=== PATIENT | male | born 1965 | race African-American/Black ===

== ENCOUNTER 2019-04-18 07:58 | Emergency (ER) | payer OTHER ==
[~2019-04-18] VITALS: Ht 172.7 cm; Wt 87.7 kg
[2019-04-18] MEDS ORDERED: HYDROCODONE/ACETAMINOPHEN 5/325MG TABLET PO ONE (08:45)
[2019-04-18 09:10] LABS: COLOR URINE YELLOW (YELLOW); KETONES URINE NEGATIVE (NEGATIVE); LEUKOCYTE ESTERASE URINE NEGATIVE (NEGATIVE); NITRITE URINE NEGATIVE (NEGATIVE); OCCULT BLOOD URINE NEGATIVE (NEGATIVE); PROTEIN URINE NEGATIVE (NEGATIVE); SPECIFIC GRAVITY URINE 1.014 (1.005-1.030)
[2019-04-18 09:11] LABS: CLARITY URINE CLEAR (CLEAR)
[2019-04-18 10:30] VITALS: BP 110/75
== END 2019-04-18 11:05 | disposition home or self-care (01) ==
LOC: ER 07:58
DX: M62.830 Muscle spasm of back (principal); E78.5 Hyperlipidemia, unspecified; I10 Essential (primary) hypertension; I25.10 Atherosclerotic heart disease of native coronary artery without angina pectoris
CPT/HCPCS: 81003; 99283